=== PATIENT | male | born 1955 | race Caucasian/White ===

== ENCOUNTER → 2019-04-21 | Outpatient (CLI) | payer OTHER, SELFPAY ==
--- NOTE | 2019-04-21 09:43 | RAD_ITS ---
STUDY: X-RAY CHEST REASON FOR EXAM: Male, 64 years old. Persistent cough TECHNIQUE: PA and lateral COMPARISON: June 14, 2015 FINDINGS: Mild nonspecific interstitial thickening most pronounced in the lower lobes.. There is no demonstrated pleural abnormality. Normal size heart. Normal mediastinum and gabe. Normal visualized pulmonary arteries. Mildly calcified aortic arch and descending thoracic aorta. Dorsal spine demonstrates spondylosis. Normal visualized ribs, clavicles, and shoulders. There is no demonstrated abnormality of the visualized soft tissue structures of the upper abdomen. No significant change since prior study RAD/Chest PA and Lateral IMPRESSION: Chronic interstitial changes. No acute disease. Electronically Signed: Steven Faulkner MD at 22:05 EDT , Service support ,
--- NOTE | 2019-04-21 09:54 | ECHOCS_ITS ---
Reason For Study: DILATED AO ROOT Procedure This was a 2D Doppler, Color Flow transthoracic echocardiogram. The study was technically difficult. Contrast injection was performed. Exam performed in department. Left Ventricle Normal LV size. Left ventricular systolic function is normal. The estimated ejection fraction is 60 %. Diastolic function is indeterminate. No regional wall motion abnormalities noted. Right Ventricle Normal RV size. Normal systolic function. Atria Borderline left atrial enlargement. Normal right atrium. No doppler evidence for ASD. Mitral Valve There is no mitral annular calcification. Normal mitral valve. Trivial mitral valve insufficiency. Tricuspid Valve Normal tricuspid valve. Trivial tricuspid valve insufficiency. Right ventricular systolic pressure estimated to be 28 mmHg. Aortic Valve Trisinus/trileaflet aortic valve. Normal aortic valve. Trivial aortic valve insufficiency. Pulmonic Valve Normal pulmonic valve. Trivial pulmonic valve insufficiency. Great Vessels Mild to moderately dilated aortic root. Pericardium/Pleural No pericardial effusion. Medication 22 gauge I.V. with prn adaptor inserted into right arm. Diluted definity 3.5ml given slow IV push to enhance endocardial definition. MMode/2D Measurements & Calculations LVIDd: 5.3 cm IVSd: 0.70 cm Ao root diam: 4.4 cm LVIDs: 3.7 cm LVPWd: 1.0 cm RVDd: 3.6 cm FS: 29.8 % LAV(MOD-bp): 76.1 ml LVAd ap4: 42.5 cm2 SV(MOD-sp4): 87.1 ml LAV(MOD-bp) Indexed: 30.5 ml/m2 EDV(MOD-sp4): 153.2 ml LAV(MOD-sp2): 82.2 ml EDV(sp4-el): 162.1 ml LAV(MOD-sp4): 72.5 ml LVAs ap4: 25.2 cm2 ESV(MOD-sp4): 66.0 ml ESV(sp4-el): 69.9 ml EF(MOD-sp4): 56.9 % EF(sp4-el): 56.9 % SV(sp4-el): 92.2 ml LA A4 area: 22.7 cm2 LA dimension(2D): 4.0 cm RA A4 area: 17.0 cm2 Time Measurements MV dec time: 0.22 sec Doppler Measurements & Calculations MV E max dylan: 74.8 cm/sec Lat Peak E' Dylan: 16.6 cm/sec Med Peak E' Dylan: 5.2 cm/sec MV A max dylan: 40.5 cm/sec E/E' lat: 4.5 E/E' med: 14.3 MV E/A: 1.8 Ao V2 max: 123.9 cm/sec LV V1 max: 101.0 cm/sec PA V2 max: 71.5 cm/sec Ao max P.1 mmHg LV V1 max P.1 mmHg PI end-d dylan: 122.2 cm/sec TR max dylan: 250.0 cm/sec TR max P.1 mmHg Interpretation Summary The study was technically difficult. Contrast injection was performed. Left ventricular systolic function is normal. The estimated ejection fraction is 60 %. Borderline left atrial enlargement. Trivial mitral valve insufficiency. Trivial tricuspid valve insufficiency. Trivial aortic valve insufficiency. Trivial pulmonic valve insufficiency. Mild to moderately dilated aortic root. Right ventricular systolic pressure estimated to be 28 mmHg. Diastolic function is indeterminate. Ordering Physician: Remedios Grimes Referring Physician: Remedios Grimes Performed By: Ariadne Atkinson, YAZMIN, RVT
== END | disposition home or self-care (01) ==
PROVIDERS: Family Provider Internal Medicine; PCP Internal Medicine; Referring Provider Internal Medicine; Visit Provider Internal Medicine
DX: R05 Cough (principal); I77.810 Thoracic aortic ectasia
CPT/HCPCS: 71046; 93306; Q9957; A4216; C8929

== ENCOUNTER → 2020-03-11 | Outpatient (CLI) | payer OTHER, SELFPAY | END | disposition home or self-care (01) | LOC: LABSPEC 12:14 | PROVIDERS: PCP Internal Medicine; Visit Provider Obstetrics & Gynecology | DX: Z11.59 Encounter for screening for other viral diseases (principal) | CPT/HCPCS: 87635; G2023; U0003 ==

== ENCOUNTER → 2020-11-07 10:40 | Outpatient (CLI) | payer OTHER, SELFPAY ==
--- NOTE | 2020-11-07 10:50 | RAD_ITS ---
STUDY: X-RAY CHEST REASON FOR EXAM: Male, 65 years old. HX. HYPERTENSION TECHNIQUE: PA and lateral views of the chest. COMPARISON: 04/21/2019 FINDINGS: The lungs are clear and expanded. There is no demonstrated pleural abnormality. There is borderline cardiomegaly. Normal mediastinum and gabe. Normal visualized pulmonary arteries. Normal visualized aortic arch and descending thoracic aorta. Normal visualized thoracic spine. Normal visualized ribs, clavicles, and shoulders. There is no demonstrated abnormality of the visualized soft tissue structures of the upper abdomen. RAD/Chest PA and Lateral IMPRESSION: Normal x-ray examination of the chest. Electronically Signed: Dixon Quinteros DO at 22:20 EST Tel , Service support ,
== END ==
LOC: RAD.FUTURE 10:43 → RAD 10:44
PROVIDERS: PCP Internal Medicine; Referring Provider Internal Medicine; Visit Provider Internal Medicine
DX: R05 Cough (principal)
CPT/HCPCS: 71046

== ENCOUNTER → 2021-07-21 10:28 | Outpatient (CLI) | payer MEDICARE, OTHER, SELFPAY ==
[2021-07-30 11:09] LABS: Cortisol, Urinary Free 27 ug/L (Undefined)
== END ==
PROVIDERS: PCP Internal Medicine; Visit Provider Internal Medicine
DX: E27.8 Other specified disorders of adrenal gland (principal); R74.8 Abnormal levels of other serum enzymes; E34.9 Endocrine disorder, unspecified; E78.5 Hyperlipidemia, unspecified; E55.9 Vitamin D deficiency, unspecified
CPT/HCPCS: 36415; 82530; 82627; 82626

== ENCOUNTER 2021-12-19 06:41 | Outpatient (CLI) | payer MEDICARE, OTHER, SELFPAY ==
--- NOTE | 2021-12-19 06:50 | CT_ITS ---
STUDY: CTA CHEST REASON FOR EXAM: Male, 66 years old. ASCENDING AORTIC ANEURYSM RADIATION DOSAGE (If Supplied By Facility): CTDIvol = ( 26.69 ) mGy, DLP = ( 2763.29 ) mGycm TECHNIQUE: The examination was performed with the intravenous administration of IV 100mL Isovue-300. Post-processing of the angiographic images was performed, with multiplanar reformation and 3D reconstruction. Individualized dose optimization techniques were used for this CT. COMPARISON: Comparison is made with prior examination dated 06/14/2015. FINDINGS: Normal enhancement of the main pulmonary artery and right and left pulmonary arteries. Normal enhancement of the bilateral peripheral pulmonary arteries. There is no demonstrated pulmonary embolism. There is aneurysmal dilatation of the ascending aorta. The transverse diameter of the ascending aorta measures 41.2 mm''s. On prior examination, it measured 40 mm. There is no demonstrated aortic dissection. There are calcifications of the coronary arteries. Normal mediastinum. Calcified right hilar lymph node. Normal visualized trachea and bronchi. The lungs are well expanded. Stable 5 mm calcified granuloma in the posterior medial segment of the right lower lobe. Stable minimal increased markings at the lung bases suggestive of a scarring. Normal pleura. Normal chest wall structures. There are degenerative changes of thoracic spine. Normal visualized upper abdomen. CT/CTA Chest W/WO Contrast IMPRESSION: Essentially stable examination. The root of the ascending thoracic aorta measures 41.2 mm. Electronically Signed: Jairo Mccarty MD at 8:56 EDT ,
--- NOTE | 2021-12-19 06:50 | CT_ITS ---
STUDY: CTA ABDOMEN AND PELVIS WITH CONTRAST REASON FOR EXAM: Male, 66 years old. ADRENAL MASS RADIATION DOSAGE (If Supplied By Facility): CTDIvol = ( 26.69 ) mGy, DLP = ( 2763.29 ) mGycm TECHNIQUE: Transaxial images were obtained from the dome of the diaphragm to the symphysis pubis without oral contrast. IV 100mL Isovue-300 was administered. Sagittal and coronal images were reconstructed. Individualized dose optimization techniques were used for this CT. COMPARISON: Comparison is made with prior study to 06/14/2015. FINDINGS: Stable mild increased markings at the lung bases suggestive of scarring. Coronary artery calcification. Normal liver. Normal gallbladder and extrahepatic biliary system. Normal spleen. Normal pancreas. There is a small, circumscribed, smooth, low attenuation right adrenal mass, consistent with an adrenal adenoma. This measures 1.3 cm. Normal left adrenal gland. Normal right kidney. Punctate calculus in the midpole calyx of the left kidney. Normal visualized stomach. Normal small intestine. Normal colon. The appendix is visualized and appears normal. There is scattered atherosclerotic calcification of the abdominal aorta, without a demonstrated aneurysm. Normal inferior vena cava. Normal retroperitoneum. Normal urinary bladder. There is a small umbilical hernia containing fat. Normal osseous structures. CT/CTA Abdomen W/WO Contrast IMPRESSION: Findings suggestive of a 1.3 cm right adrenal adenoma. Punctate calculus in the midpole calyx of the left kidney. Electronically Signed: Jairo Mccarty MD at 9:01 EDT ,
[2021-12-19 07:06] LABS: CREATININE FINGERSTICK 1.3 mg/dL (0.70-1.30)
== END 2021-12-19 23:59 | disposition home or self-care (01) ==
PROVIDERS: PCP Internal Medicine; Referring Provider Internal Medicine; Visit Provider Internal Medicine
DX: I77.810 Thoracic aortic ectasia (principal); E27.8 Other specified disorders of adrenal gland
CPT/HCPCS: 71275; 74175; Q9967

== ENCOUNTER 2022-05-30 12:05 | Inpatient (IN) | payer MEDICARE, OTHER, SELFPAY ==
[2022-05-30 12:07] VITALS: BP 140/92; PULSE 95; RESP 16; TEMP 36.4; O2SAT 99; BMI 34.7
--- NOTE | 2022-05-30 12:20 | VDLE_ITS ---
Reason For Study: Swelling RIGHT GSV is normal. CFV is compressible, spontaneous, phasic, competent and demonstrates normal augmentation. FV is compressible, spontaneous, phasic, competent and demonstrates normal augmentation. POP V is compressible, spontaneous, phasic, competent and demonstrates normal augmentation. T/P Trunk is compressible. PTV is compressible. RT PerV is compressible. Heterogenous, non vascular structure noted Rt Groin consistent with enlarged lymph node. Procedure This is a venous duplex using B-mode, color flow and spectral Doppler. The exam was abbreviated due to the COVID 19 protocol. Exam performed portable in ED. The study was technically difficult. Technically difficult due to swelling. A preliminary report was called and/or faxed to Dr. Silva. VL/Venous Duplex US, Unilateral Interpretation Summary Deep veins of the right lower extremity are patent and compressible segmentally . There is no evidence of right lower extremity deep vein thrombosis. Valvular competence adina ears intact within the proximal deep venous system on the right . The right great saphenous vein a ppears patent and compressible segmentally. A non-vascular, heterogeneous structure is noted in t he right groin, measuring 5.48 cm x 1.75 cm. This may represent lymphadenopathy. Clinical corre lation is advised. Ordering Physician: Rajeev Silva Referring Physician: Remedios Grimes Performed By: Karen Gannon, RDCS, RVT
--- NOTE | 2022-05-30 12:42 | EDS_ITS ---
HPI History of Present Illness Chief Complaint: Lower Extremity Injury Detail of Chief Complaint: Right leg redness and swelling Informant: patient Narrative Narrative: Patient presents the emergency department complaint of redness and swelling to his right leg that he has noticed over the last 4 days. Patient was on a cruise in [place] and had been doing some walking. 4 days ago he came down with fever and chills and the next morning he tested positive for COVID. Patient subsequently developed pain and swelling in his right leg and was seen by the physician on board the ship and was started on Lovenox as well as Rocephin IV. Patient also started on Keflex p.o. Patient continues to complain of swelling and redness to the right leg that has not improved and is worried about a DVT. Patient tells me that he had a negative D-dimer on board the ship. Patient denies chest pain or shortness of breath. Prior similar symptoms: No [facility] Medical History (Updated 05/30/22 @ 13:[address] Rajeev Silva, ) Gout HTN (hypertension) Home Medications amlodipine 5 mg tablet 5 mg PO DAILY ##30 06/14/15 [Rx Last Taken 01/14/17 05:30] metoprolol succinate 50 mg tablet,extended release 24 hr 100 mg PO DAILY 06/14/15 [History Last Taken 01/14/17 05:30] aspirin 325 mg tablet,delayed release 325 mg PO DAILY@0800 01/07/17 [History Last Taken Unknown] cholecalciferol (vitamin D3) 50 mcg (2,000 unit) capsule (Vitamin D3) 2,000 unit PO DAILY 01/07/17 [History Last Taken Unknown] metformin 500 mg tablet,extended release 24 hr 750 mg PO BID 01/07/17 [History Last Taken Unknown] naltrexone 8 mg-bupropion 90 mg tablet,extended release (Contrave) 2 ea PO DAILY 01/07/17 [History Last Taken Unknown] Allergy/AdvReac Type Severity Reaction Status Date / Time allopurinol Allergy Rash Verified 05/30/22 12:06 Penicillins Allergy Hives Verified 05/30/22 12:05 Sulfa (Sulfonamide Allergy Hives Verified 05/30/22 12:05 Antibiotics) Surgical History (Updated 05/30/22 @ 13:08 by Carmella Rebolledo) H/O cardiac radiofrequency ablation Social History Smoking Status: Never smoker ROS ROS ED Review of Systems ROS Unobtainable: other Constitutional Constitutional ED: Reports lethargy; Denies chills, fever(s), sweats or weight loss Eyes Eyes: Denies blurry vision, change in vision or diplopia ENT ENT ED: Denies rhinorrhea or sore throat Cardiovascular Cardiovascular: Reports chest pain and racing heartbeat; Denies orthopnea Respiratory/Chest Respiratory/Chest: Reports dyspnea and dyspnea on exertion; Denies cough, orthopnea or sputum Gastrointestinal Gastrointestinal: Denies abdominal pain, diarrhea, nausea or vomiting Genitourinary Genitourinary ED: Denies dysuria, hematuria or urinary frequency Musculoskeletal Musculoskeletal: Reports other Details: Right leg redness and swelling ; Denies arthralgias, back pain, myalgias or neck pain Integumentary Denies abscess, Abrasions or rash Neurologic Neurologic: Denies headache(s) or weakness Psychiatric Psychiatric: Denies anxiety, depression or suicidal thoughts Endocrine Endocrinology: Denies polydipsia, polyphagia or polyuria Hematologic/Lymphatic Hematologic/Lymphatic: Denies easy bleeding, easy bruising or lymphadenopathy Allergic/Immunologic Allergic/Immunologic ED: Denies mouth swelling, tongue swelling or urticaria EXAM Physical Exam Const Vital Signs: 05/30/22 12:07 Temperature 97.6 F L Temperature Source Temporal Pulse Rate 95 Respiratory Rate 16 Blood Pressure 140/92 H Blood Pressure Mean 108 Pulse Ox 99 Oxygen Delivery Method Room Air Positive well nourished and well developed General Appearance ED: well developed and NAD HEENT Reports TM's clear and moist mucous membranes normocephalic and atraumatic; Negative for trauma or tenderness Tympanic Membrane ED: Yes TM's clear Eyes PERRL and EOMs intact bilaterally General Eye ED: Negative for pale conjunctiva or scleral icterus Neck no lymphadenopathy, supple and no JVD General: Negative for tenderness Chest Wall inspection of chest normal and palpation of chest normal Chest: Negative for tenderness Resp normal respiratory effort and clear to auscultation bilaterally Effort and Inspection: Negative for respiratory distress or pain with movement Auscultation: Negative for rhonchi, wheezes or diminished lung sounds Cardio regular rate, regular rhythm, S1 normal heart sound, S2 normal heart sound and no murmurs Peripheral Pulses: pulses 2+ throughout GI normal to inspection, nondistended, normoactive bowel sounds, soft to palpation, non-tender, non-distended and no masses Back/Spine no CVA tenderness and no thoracic nor lumbar tenderness Extremity normal to inspection General Extremety ED: Negative for edema General Extremity: Negative for edema Neuro oriented x3, CN's II-XII intact bilaterally, no sensory deficits noted and gait normal Sensorium / Orientation: awake, alert, oriented to person, oriented to place and oriented to time Motor Exam: strength 5/5 throughout and strength abnormal Psych mental status grossly normal Skin no rashes or lesions noted and no wounds Skin Narrative: Right lower extremity-patient has diffuse erythema and edema of the right lower extremity consistent with cellulitis. MDM MDM MDM Narrative Medical decision making narrative: IV line established on arrival. Patient was given Rocephin and vancomycin IV. Lab work-up showed an elevated white count of 15.4. Chemistries unremarkable. Lactate was normal. Venous Doppler was negative for DVT of the right leg. Case will be discussed with hospitalist evaluate patient for admission for cellulitis of the right leg with failed outpatient therapy. Lab Data Attestation: I reviewed the patient's lab results. Labs: Laboratory Results - last 24 hr 05/30/22 05/30/22 05/30/22 12:45 12:45 12:45 WBC 15.4 H RBC 5.20 Hgb 15.7 Hct 46.4 MCV 89.2 MCH 30.2 MCHC 33.8 RDW Std Deviation 41.4 RDW Coeff of Wild 12.7 Plt Count 260 MPV 9.6 Immature Gran % (Auto) 0.700 Neut % (Auto) 84.5 H Lymph % (Auto) 6.5 L [place] % (Auto) 7.5 Eos % (Auto) 0.5 Baso % (Auto) 0.3 Absolute Neuts (auto) 13.1 H Absolute Lymphs (auto) 1.00 Nucleated RBC % 0 Sodium 137 Potassium 3.4 L Chloride 102 Carbon Dioxide 26.0 Anion Gap 9 BUN 15 Creatinine 1.14 Estim Creat Clear Calc 74.11 Est GFR (MDRD) Af Amer 83 Est GFR (MDRD) Non-Af 68 BUN/Creatinine Ratio 13.2 Glucose 154 H Lactic Acid 1.2 Calcium 8.7 Discharge Plan Triage Chief Complaint: Lower Extremity Injury ED Provider: Rajeev Silva Dx/Rx/DC Orders Clinical Impression: Cellulitis of leg, right, Leukocytosis, COVID-19 Prescriptions: No Action metoprolol succinate 50 MG tablet 100 mg PO DAILY amlodipine 5 MG tablet 5 mg PO DAILY Qty: 30 0RF aspirin 325 MG tablet 325 mg PO DAILY@0800 metformin 500 MG tablet 750 mg PO BID cholecalciferol (vitamin D3) [Vitamin D3] 2,000 UNIT capsule 2,000 unit PO DAILY naltrexone-bupropion [Contrave] 1 EACH Tablet.Er 2 ea PO DAILY Primary Care Provider: Remedios Grimes Referrals: Remedios Grimes MD [Primary Care Provider] - Disposition Disposition: Acute Care Hospital [facility]
[2022-05-30] MEDS: Ceftriaxone 1 GM/50 ML BAG IV (13:05)
[2022-05-30 13:11] LABS: Absolute Neutrophil Count 13.1 X10^3/uL (2.0-7.7); Basophil# 0.04 X10^3/uL; Basophil% 0.3 % (0-1); Eosinophil# 0.07 X10^3/uL; Eosinophils% 0.5 % (0-5); Hematocrit 46.4 % (40-54); Hemoglobin 15.7 g/dL (13.0-16.5); Lymphocyte % 6.5 % (19-41); Mean Corp Hgb Conc 33.8 g/dL (32-36); Mean Corpuscular Hgb 30.2 pg (27.0-32.0); Mean Corpuscular Volume 89.2 fL (80-94); Mean Platelet Vol. 9.6 fl (6.2-12.0); Monocyte# 1.16 X10^3/uL; Monocyte% 7.5 % (0-10); NRBC Flagged by Analyzer 0 % (0-5); Neutrophil # 13.06 X10^3/uL (2.7-7.7); Neutrophil % 84.5 % (47-70); Platelet Count 260 K/mm3 (150-450); RBC Distribution Width CV 12.7 % (11.6-14.6); RBC Distribution Width SD 41.4 fl (35.1-43.9); White Blood Count 15.4 K/mm3 (4.4-11.0)
[2022-05-30 13:22] LABS: Anion Gap 9 (5-15); BUN 15 mg/dL (7-18); BUN/Creat Ratio 13.2 RATIO (10-20); Calcium,Total 8.7 mg/dL (8.5-10.1); Chloride 102 mmol/L (98-107); Creatinine, Serum 1.14 mg/dL (0.70-1.30); EST Glomerular Filtration Rate 68 mL/min (>60); Est Glom Filt Rate - Afr Amer 83 mL/min (>60); Estimated Creatinine Clearance 74.11 ml/min; Glucose 154 mg/dL (74-106); Potassium 3.4 mmol/L (3.5-5.1); Sodium Level 137 mmol/L (136-145)
[2022-05-30 13:27] LABS: Lactic Acid 1.2 mmol/L (0.4-1.9)
--- NOTE | 2022-05-30 13:40 | HP.PCM.HOS_ITS ---
HPI - General General Date of Admission: 05/30/22 Date of Service: 05/30/22 Chief Complaint: Right lower extremity swelling HPI Narrative AME BETANCOURT, is a 67 M who presents presents with right lower extremity swelling. Patient symptoms started 5 days prior to his admission while was on a cruise. He developed fever and chills and some shortness of breath. Tested himself for COVID came back positive started himself on Paxlovid. He later experienced significant swelling involving the right lower extremity. He also did experience significant warmth and erythema involving the entire distal right lower extremity. D-dimer obtained on the street came back negative. Patient was treated with Rocephin switched to Keflex. Patient symptoms however did not improve hence the decision to present to the emergency department. In the ED v enous duplex involving the right lower extremity came back negative for DVT. An assessment of cellulitis made. Admitted to regular nursing floor for further management [facility] Medical History Gout HTN (hypertension) Home Medications amlodipine 5 mg tablet 5 mg PO DAILY ##30 06/14/15 [Rx Last Taken 01/14/17 05:30] metoprolol succinate 50 mg tablet,extended release 24 hr 100 mg PO DAILY 06/14/15 [History Last Taken 01/14/17 05:30] aspirin 81 mg tablet,delayed release 81 mg PO DAILY 05/30/22 [History Last Taken Unknown] cholecalciferol (vitamin D3) 125 mcg (5,000 unit) tablet (Vitamin D3) 125 mcg PO DAILY 05/30/22 [History Last Taken Unknown] esomeprazole magnesium 20 mg capsule,delayed release (Nexium) 20 mg PO DAILY 05/30/22 [History Last Taken Unknown] Allergy/AdvReac Type Severity Reaction Status Date / Time allopurinol Allergy Rash Verified 05/30/22 12:06 Penicillins Allergy Hives Verified 05/30/22 12:05 Sulfa (Sulfonamide Allergy Hives Verified 05/30/22 12:05 Antibiotics) Family History (Updated 05/30/22 @ 14:[address] Andres Roberts MD) Mother Diabetes Surgical History (Updated 05/30/22 @ 13:08 by Carmella Rebolledo) H/O cardiac radiofrequency ablation Social History Smoking Status: Never smoker ROS ROS Narrative GENERAL: fever, chills, HEENT: denies headache, sinus congestion, RESPIRATORY: denies cough, CARDIAC: denies chest pain, palpitations, orthopnea, PND GASTROINTESTINAL: denies abdominal pain, nausea, vomiting, melena, GENITOURINARY: denies dysuria, urgency, frequency, heamaturia EXTREMITY: denies swelling MUSCULOSKELETAL: Swelling and erythema involving the right lower extremity NEUROLOGIC: denies focal numbness, weakness, tingling HEMATOLOGIC: denies easy bruising and/or hemorrhage INTEGUMENT: denies rashes PSYCHIATRIC: denies suicidal or homicidal ideation Vital Signs Vital Signs Vital Signs: 05/30/22 12:07 Temperature 97.6 F L Temperature Source Temporal Pulse Rate 95 Respiratory Rate 16 Blood Pressure 140/92 H Blood Pressure Mean 108 Pulse Ox 99 Oxygen Delivery Method Room Air Weight Weight: 122.47 kg Body Mass Index (BMI) 34.7 Physical Exam Narrative GENERAL: cooperative HEENT: Atraumatic; EYES; Anicteric, Normal Conjunctiva NECK; supple, normal thyroid, RESPIRATORY: Diminished to auscultation CARDIOVASCULAR: Regular S1 S2, GI: soft, normoactive bowel sounds, : No Renal angle tenderness; EXTREMITIES: Significant swelling and erythema with seeping involving the right lower extremity from the knee to the ankle MUSCULOSKELETAL: no muscle wasting NEURO: Awake; no lateralizing signs. SKIN: As described above PSYCH; Flat affect Results Lab / Micro Data Result Diagrams: 05/30/22 12:45 05/30/22 12:45 Labs: Laboratory Results - last 24 hr 05/30/22 12:45: WBC 15.4 H, RBC 5.20, Hgb 15.7, Hct 46.4, MCV 89.2, MCH 30.2, MCHC 33.8, RDW Std Deviation 41.4, RDW Coeff of Wild 12.7, Plt Count 260, MPV 9.6, Immature Gran % (Auto) 0.700, Neut % (Auto) 84.5 H, Lymph % (Auto) 6.5 L, [place] % (Auto) 7.5, Eos % (Auto) 0.5, Baso % (Auto) 0.3, Absolute Neuts (auto) 13.1 H, Absolute Lymphs (auto) 1.00, Nucleated RBC % 0 05/30/22 12:45: Sodium 137, Potassium 3.4 L, Chloride 102, Carbon Dioxide 26.0, Anion Gap 9, BUN 15, Creatinine 1.14, Estim Creat Clear Calc 74.11, Est GFR (MDRD) Af Amer 83, Est GFR (MDRD) Non-Af 68, BUN/Creatinine Ratio 13.2, Glucose 154 H, Calcium 8.7 05/30/22 12:45: Lactic Acid 1.2 Assessment & Plan Assessment/Plan (1) Cellulitis of leg, right: (2) COVID-19: PLAN: Plan Patient is a 67-year-old gentleman presented with significant swelling involving the right lower extremity with erythema and warmth 1. Cellulitis involving right lower extremity ?Patient is failed outpatient treatment with Keflex admitted to regular nursing floor started on Rocephin and vancomycin. Cultures sent from the ED. Patient also underwent venous duplex of the right lower extremity in the ED which was negative for DVT 2. COVID-19 infection ? Patient did self treat with Paxlovid. Currently remains asymptomatic 3. Hypertension - Blood pressure controlled, home medications continued with dose adjustment as needed 4. Gout ? Currently asymptomatic 5. GERD ? On PPI 6. Obstructive sleep apnea ? Patient is on CPAP at night 7. BMI of 34.7 ? Weight loss advised 8. DVT prophylaxis ? [facility] Charges/Coding Visit Charges Inpatient E&M: 67248 Init Hosp L3
--- NOTE | 2022-05-30 13:47 | NURSING ---
MED SURG KITTOE CELLULITIS RT LEG WITH FAILED OUTPATIENT THERAPY, COVID 19, LEUKOCYTOSIS
[2022-05-30 14:06] VITALS: BP 137/74; PULSE 83; RESP 18; TEMP 37.6; O2SAT 94
[2022-05-30 14:35] LABS: M R Staph aureus DNA By PCR Negative (Negative); Probe Check PASS; Specimen Processing Control PASS
--- NOTE | 2022-05-30 15:11 | PCM.RX.CS ---
Consult Pharmacy has been consulted to manage selected antiobiotic: Vancomycin Type of Consult: New start Suspected Infection: Skin/Soft tissue Labs: Sodium 137 mmol/L (136-145) 05/30/22 12:45 Potassium 3.4 mmol/L (3.5-5.1) L 05/30/22 12:45 Chloride 102 mmol/L (98-107) 05/30/22 12:45 Carbon Dioxide 26.0 mmol/L (21.0-32.0) 05/30/22 12:45 Anion Gap 9 (5-15) 05/30/22 12:45 BUN 15 mg/dL (7-18) 05/30/22 12:45 Creatinine 1.14 mg/dL (0.70-1.30) 05/30/22 12:45 Est GFR (MDRD) Af Amer 83 mL/min (>60) 05/30/22 12:45 Est GFR (MDRD) Non-Af 68 mL/min (>60) 05/30/22 12:45 BUN/Creatinine Ratio 13.2 RATIO (10-20) 05/30/22 12:45 Glucose 154 mg/dL (74-106) H 05/30/22 12:45 Goal Trough: 10-15 mcg/mL Pharmacy Plan for Drug Dosing: NEW START IV VANCOMYCIN Consulting Physician: Dr. Roberts Indication: Cellulitis Goal Trough: 10-15 SrCr: 1.14 CrCl: 88.64 mls/min (based off of an adjusted body weight of 98kg) Comments: pt received a 1750mg dose in the ER on 05/30/22 at 1404 Vancomcyin Dose: based on pts weight and renal function, recommend an initial dose of 1250mg q12h starting 05/31/22 at 0200. trough before the 4th total dose Pending Level: 06/01/22 at 0130 Pharmacy Service will continue to monitor and adjust dosing as required. Follow-Up Labs: Trough Vancomycin - 06/01/22 at 0130
[2022-05-30 15:19] VITALS: BMI 35.3
[2022-05-30 15:27] VITALS: BP 119/76; PULSE 88; RESP 18; TEMP 36.9; O2SAT 94
[2022-05-30] MEDS: 0.9% Normal Saline 1,000 ML 150 ML IV ×2 (15:52→22:27)
[2022-05-30] MEDS: Acetaminophen 325 MG Tablet 650 MG PO (16:05)
[2022-05-30 21:03] VITALS: BP 128/77; PULSE 79; RESP 18; TEMP 37.2; O2SAT 97
[2022-05-30] MEDS: Enoxaparin 40 MG/0.4 ML Syringe SC (21:08)
[2022-05-31 03:30] VITALS: BP 121/80; PULSE 81; RESP 18; TEMP 36.8; O2SAT 94
[2022-05-31] MEDS: 0.9% Normal Saline 1,000 ML 150 ML IV ×3 (06:58→20:12)
[2022-05-31 07:00] LABS: Anion Gap 9 (5-15); BUN 11 mg/dL (7-18); BUN/Creat Ratio 10.5 RATIO (10-20); Calcium,Total 8.4 mg/dL (8.5-10.1); Chloride 107 mmol/L (98-107); Creatinine, Serum 1.05 mg/dL (0.70-1.30); EST Glomerular Filtration Rate 75 mL/min (>60); Est Glom Filt Rate - Afr Amer 91 mL/min (>60); Estimated Creatinine Clearance 80.46 ml/min; Glucose 102 mg/dL (74-106); Magnesium 2.3 mg/dL (1.6-2.6); Phosphorus 2.9 mg/dL (2.5-4.9); Potassium 3.5 mmol/L (3.5-5.1); Sodium Level 140 mmol/L (136-145)
[2022-05-31 07:04] LABS: Absolute Lymphocyte Count 1.22 X10^3/uL (0.83-4.51); Absolute Neutrophil Count 9.3 X10^3/uL (2.0-7.7); Basophil# 0.04 X10^3/uL; Basophil% 0.3 % (0-1); Eosinophil# 0.18 X10^3/uL; Eosinophils% 1.5 % (0-5); Hematocrit 42.9 % (40-54); Hemoglobin 14.7 g/dL (13.0-16.5); Lymphocyte # 1.22 X10^3/ul (0.83-4.51); Lymphocyte % 10.2 % (19-41); Mean Corp Hgb Conc 34.3 g/dL (32-36); Mean Corpuscular Hgb 30.9 pg (27.0-32.0); Mean Corpuscular Volume 90.3 fL (80-94); Mean Platelet Vol. 9.6 fl (6.2-12.0); Monocyte# 1.15 X10^3/uL; Monocyte% 9.6 % (0-10); NRBC Flagged by Analyzer 0 % (0-5); Neutrophil # 9.29 X10^3/uL (2.7-7.7); Neutrophil % 77.6 % (47-70); Platelet Count 229 K/mm3 (150-450); RBC Distribution Width CV 12.7 % (11.6-14.6); RBC Distribution Width SD 42.2 fl (35.1-43.9); Red Blood Count 4.75 M/mm3 (4.6-6.2)
--- NOTE | 2022-05-31 07:52 | PN.HOSP_ITS ---
Subjective Subjective Patient is a 67-year-old gentleman presented with significant swelling involving the right lower extremity with erythema. An assessment of right lower extremity cellulitis made admitted to regular nursing floor of further management. Patient had also tested positive for COVID on a recent cruise to [place] Objective Data Objective Data Vital Signs: Vital Signs Temp Pulse Resp BP Pulse Ox O2 Del Method 98.3 F 81 18 121/80 H 94 Room Air 05/31/22 03:30 05/31/22 03:30 05/31/22 03:30 05/31/22 03:30 05/31/22 03:30 05/31/22 03:30 Oxygen Delivery Method Room Air Weight: 124.738 kg Body Mass Index (BMI) 35.3 Intake & Output: Intake and Output for Last 24 Hours 05/29/22 05/30/22 05/31/22 23:59 23:59 23:59 Intake Total 2072.5 / 2712.5 2155 / 2155 Output Total 1850 / 1850 Balance 2072.5 / 1912.5 305 / 305 Lab / Micro Data Result Diagrams: 05/31/22 05:49 05/31/22 05:49 Labs: Laboratory Results - last 24 hr 05/30/22 12:45: WBC 15.4 H, RBC 5.20, Hgb 15.7, Hct 46.4, MCV 89.2, MCH 30.2, MC HC 33.8, RDW Std Deviation 41.4, RDW Coeff of Wild 12.7, Plt Count 260, MPV 9.6, Immature Gran % (Auto) 0.700, Neut % (Auto) 84.5 H, Lymph % (Auto) 6.5 L, [place] % (Auto) 7.5, Eos % (Auto) 0.5, Baso % (Auto) 0.3, Absolute Neuts (auto) 13.1 H, Absolute Lymphs (auto) 1.00, Nucleated RBC % 0 05/30/22 12:45: Sodium 137, Potassium 3.4 L, Chloride 102, Carbon Dioxide 26.0, Anion Gap 9, BUN 15, Creatinine 1.14, Estim Creat Clear Calc 74.11, Est GFR (MDRD) Af Amer 83, Est GFR (MDRD) Non-Af 68, BUN/Creatinine Ratio 13.2, Glucose 154 H, Calcium 8.7 05/30/22 12:45: Lactic Acid 1.2 05/30/22 12:55: MRSA (PCR) Negative 05/31/22 05:49: WBC 12.0 H, RBC 4.75, Hgb 14.7, Hct 42.9, MCV 90.3, MCH 30.9, MCHC 34.3, RDW Std Deviation 42.2, RDW Coeff of Wild 12.7, Plt Count 229, MPV 9.6, Immature Gran % (Auto) 0.800, Neut % (Auto) 77.6 H, Lymph % (Auto) 10.2 L, [place] % (Auto) 9.6, Eos % (Auto) 1.5, Baso % (Auto) 0.3, Absolute Neuts (auto) 9.3 H, Absolute Lymphs (auto) 1.22, Nucleated RBC % 0 05/31/22 05:49: Sodium 140, Potassium 3.5, Chloride 107, Carbon Dioxide 24.0, Anion Gap 9, BUN 11, Creatinine 1.05, Estim Creat Clear Calc 80.46, Est GFR (MDRD) Af Amer 91, Est GFR (MDRD) Non-Af 75, BUN/Creatinine Ratio 10.5, Glucose 102, Calcium 8.4 L, Phosphorus 2.9, Magnesium 2.3 Radiography Diagnostic Testing: Radiology Impression Venous Doppler Study 05/30/22 12:20 Interpretation Summary Deep veins of the right lower extremity are patent and compressible segmentally. There is no evidence of right lower extremity deep vein thrombosis. Valvular competence appears intact within the proximal deep venous system on the right . The right great saphenous vein appears patent and compressible segmentally. A non-vascular, heterogeneous structure is noted in the right groin, measuring 5.48 cm x 1.75 cm. This may represent lymphadenopathy. Clinical correlation is advised. Ordering Physician: Rajeev Silva Referring Physician: Remedios Grimes Performed By: Karen Gannon, RDCS, RVT Physical Exam Narrative GENERAL: cooperative HEENT: Atraumatic; EYES; Anicteric, Normal Conjunctiva NECK; supple, normal thyroid, RESPIRATORY: Diminished to auscultation CARDIOVASCULAR: Regular S1 S2, GI: soft, normoactive bowel sounds, : No Renal angle tenderness; EXTREMITIES: Significant swelling and erythema with seeping involving the right lower extremity from the knee to the ankle MUSCULOSKELETAL: no muscle wasting NEURO: Awake; no lateralizing signs. SKIN: As described above PSYCH; Flat affect Assessment & Plan Assessment/Plan (1) Cellulitis of leg, right: (2) COVID-19: PLAN: Plan Patient is a 67-year-old gentleman presented with significant swelling involving the right lower extremity with erythema and warmth 1. Cellulitis involving right lower extremity ?Patient is failed outpatient treatment with Keflex admitted to regular nursing floor started on Rocephin and vancomycin. Cultures sent from the ED. Patient also underwent venous duplex of the right lower extremity in the ED which was negative for DVT ? 05/31/2022 there appears to be a decrease in the swelling involving the right lower extremity and less erythematous compared to the day prior WBC count also trending down. 2. COVID-19 infection ? Patient did self treat with Paxlovid. Currently remains asymptomatic 3. Hypertension - Blood pressure controlled, home medications continued with dose adjustment as needed 4. Gout ? Currently asymptomatic 5. GERD ? On PPI 6. Obstructive sleep apnea ? Patient is on CPAP at night 7. BMI of 34.7 ? Weight loss advised 8. DVT prophylaxis ? SC Lovenox Charges/Coding Visit Charges Inpatient E&M: 71061 Subs Hosp L2
[2022-05-31 08:59] VITALS: O2SAT 94
[2022-05-31] MEDS: Aspirin E.C. 81 MG Tablet PO (09:02)
[2022-05-31 09:05] VITALS: BP 130/79; PULSE 89; RESP 18; TEMP 37.2; O2SAT 94
[2022-05-31 09:08] VITALS: BP 130/79; PULSE 89
[2022-05-31] MEDS: Enoxaparin 40 MG/0.4 ML Syringe SC ×2 (09:08→20:11)
[2022-05-31] MEDS: Cholecalciferol (Vit D3) 125 MCG CAPSULE (5,000 UNITS) PO (09:08)
[2022-05-31] MEDS: amLODIPine 5 MG Tablet PO (09:08)
[2022-05-31] MEDS: Metoprolol(XL)Succ 100 MG Tablet PO (09:08)
[2022-05-31] MEDS: Pantoprazole Sodium 20 MG Tablet PO (09:09)
[2022-05-31] MEDS: Acetaminophen 325 MG Tablet 650 MG PO ×2 (10:46→20:11)
[2022-05-31 14:05] VITALS: BP 123/68; PULSE 81; RESP 18; TEMP 36.6; O2SAT 95
[2022-05-31 20:16] VITALS: BP 135/79; PULSE 87; RESP 16; TEMP 37.2; O2SAT 95
[2022-06-01 02:10] LABS: Absolute Lymphocyte Count 1.44 X10^3/uL (0.83-4.51); Absolute Neutrophil Count 8.1 X10^3/uL (2.0-7.7); Basophil# 0.04 X10^3/uL; Basophil% 0.4 % (0-1); Eosinophils% 2.7 % (0-5); Hematocrit 40.8 % (40-54); Hemoglobin 13.9 g/dL (13.0-16.5); Lymphocyte # 1.44 X10^3/ul (0.83-4.51); Lymphocyte % 13.1 % (19-41); Mean Corp Hgb Conc 34.1 g/dL (32-36); Mean Corpuscular Hgb 30.8 pg (27.0-32.0); Mean Corpuscular Volume 90.5 fL (80-94); Mean Platelet Vol. 9.3 fl (6.2-12.0); Monocyte# 0.97 X10^3/uL; Monocyte% 8.8 % (0-10); NRBC Flagged by Analyzer 0 % (0-5); Neutrophil % 73.5 % (47-70); Platelet Count 242 K/mm3 (150-450); RBC Distribution Width CV 12.8 % (11.6-14.6); RBC Distribution Width SD 42.1 fl (35.1-43.9); Red Blood Count 4.51 M/mm3 (4.6-6.2)
[2022-06-01] MEDS: 0.9% Normal Saline 1,000 ML 150 ML IV ×2 (02:11→11:00)
[2022-06-01 02:13] VITALS: BP 132/77; PULSE 68; RESP 16; TEMP 36.9; O2SAT 97
[2022-06-01 02:41] LABS: Anion Gap 5 (5-15); BUN 12 mg/dL (7-18); BUN/Creat Ratio 12.3 RATIO (10-20); Calcium,Total 8.3 mg/dL (8.5-10.1); Chloride 111 mmol/L (98-107); Creatinine, Serum 0.97 mg/dL (0.70-1.30); EST Glomerular Filtration Rate 82 mL/min (>60); Est Glom Filt Rate - Afr Amer 99 mL/min (>60); Glucose 105 mg/dL (74-106); Potassium 3.8 mmol/L (3.5-5.1); Sodium Level 141 mmol/L (136-145)
[2022-06-01 02:44] LABS: Vancomycin, Trough Level 8.2 ug/mL (5.0-15.0)
--- NOTE | 2022-06-01 04:03 | PCM.RX.CS ---
Consult Pharmacy has been consulted to manage selected antiobiotic: Vancomycin Type of Consult: Follow-up Labs: Sodium 141 mmol/L (136-145) 06/01/22 01:45 Potassium 3.8 mmol/L (3.5-5.1) 06/01/22 01:45 Chloride 111 mmol/L (98-107) H 06/01/22 01:45 Carbon Dioxide 25.0 mmol/L (21.0-32.0) 06/01/22 01:45 Anion Gap 5 (5-15) 06/01/22 01:45 BUN 12 mg/dL (7-18) 06/01/22 01:45 Creatinine 0.97 mg/dL (0.70-1.30) 06/01/22 01:45 Est GFR (MDRD) Af Amer 99 mL/min (>60) 06/01/22 01:45 Est GFR (MDRD) Non-Af 82 mL/min (>60) 06/01/22 01:45 BUN/Creatinine Ratio 12.3 RATIO (10-20) 06/01/22 01:45 Glucose 105 mg/dL (74-106) 06/01/22 01:45 Vancomycin Trough 8.2 ug/mL (5.0-15.0) 06/01/22 01:45 Goal Trough: 10-15 mcg/mL Pharmacy Plan for Drug Dosing: Pharmacy Service will continue to monitor and adjust dosing as required. TROUGH 8.2 AT 11.5 HRS. (GOAL 10-15) INCREASE TO 1500 Q12H AND FOLLOW UP TROUGH PRIOR TO 4TH DOSE Follow-Up Labs: Trough Vancomycin Labs to be done on [date and time ordered]: 06/03 @ 0136
[2022-06-01] MEDS: Acetaminophen 325 MG Tablet 650 MG PO (08:11)
[2022-06-01 08:15] VITALS: BP 133/74; PULSE 86; RESP 18; TEMP 36.6; O2SAT 98
--- NOTE | 2022-06-01 09:53 | DCINST_ITS ---
Discharge Instructions Diet Discharge Diet: Low fat / Low cholesterol Activity Discharge Activity: Return to Normal Activity Dressing / Incision Call your doctor if you observe: Fever of 101 or Higher, Shortness of breath, Dizziness, Fainting spells, Swelling in the ankles, Chest pain and Increased palpitations (irregular heartbeat) Follow Up Care Test Results: Test results from this visit will be discussed in further detail at your follow- up appointment, if applicable. Discharge Plan Admission Admit Date/Time: 05/30/22 14:03 Attending Provider: Theodore Appiah Primary Care Provider: Remedios Grimes Consulting Providers: Andres Roberts ; Mark Lauren Instructions Additional Instructions / Restrictions: Can Tommie wrap affected extremity to assist with edema Discharge Orders/Prescriptions Prescriptions: New doxycycline hyclate 100 mg capsule 100 mg PO BID Qty: 14 0RF Continued metoprolol succinate 50 MG tablet 100 mg PO DAILY amlodipine 5 MG tablet 5 mg PO DAILY Qty: 30 0RF aspirin 81 mg Tablet,Delayed Release (Dr/Ec) 81 mg PO DAILY esomeprazole magnesium [Nexium] 20 mg Capsule,Delayed Release(Dr/Ec) 20 mg PO DAILY cholecalciferol (vitamin D3) [Vitamin D3] 125 mcg (5,000 unit) Tablet 125 mcg PO DAILY Referrals / Follow Up: Remedios Grimes MD [Primary Care Provider] - Within 1 Week Disposition Disposition (needs filled in before D/C Order can be placed): Home, Self Care
--- NOTE | 2022-06-01 10:21 | PCM.DC.SUM ---
Providers Date of Admission: 05/30/22 Primary Care Physician: Dr. Remedios Grimes MD Consultations 05/31/22 10:04 Consult: Infectious Disease Routine Consulting Provider: Mark Lauren Reason for Consult: Right lower extremity cellulitis EMERGENT Consult: No MD Notified: Yes Date Notified: 06/01/22 Time Notified: 08:55 Method of Notification: Answering Service Reason For Visit: RIGHT LOWER EXTREMITY Diagnosis Discharge Diagnosis (1) Cellulitis of leg, right: Status: Acute Code(s): L03.115 - Cellulitis of right lower limb (2) COVID-19: Status: Acute Code(s): U07.1 - COVID-19 Medications at Discharge Home Medications amlodipine 5 mg tablet 5 mg PO DAILY ##30 06/14/15 metoprolol succinate 50 mg tablet,extended release 24 hr 100 mg PO DAILY 06/14/15 aspirin 81 mg tablet,delayed release 81 mg PO DAILY 05/30/22 cholecalciferol (vitamin D3) 125 mcg (5,000 unit) tablet (Vitamin D3) 125 mcg PO DAILY 05/30/22 esomeprazole magnesium 20 mg capsule,delayed release (Nexium) 20 mg PO DAILY 05/30/22 doxycycline hyclate 100 mg capsule 100 mg PO BID #14 caps 06/01/22 Hospital Course Operations None Procedures None Summary of Care Provided Minutes Spent on Discharge: 38 Hospital Course: Per HPI: AME BETANCOURT, is a 67 M who presents presents with right lower extremity swelling.? Patient symptoms started 5 days prior to his admission while was on a cruise.? He developed fever and chills and some shortness of breath.? Tested himself for COVID came back positive started himself on Paxlovid.? He later experienced significant swelling involving the right lower extremity.? He also did experience significant warmth and erythema involving the entire distal right lower extremity.? D-dimer obtained on the street came back negative.? Patient was treated with Rocephin switched to Keflex.? Patient symptoms however did not improve hence the decision to present to the emergency department.? In the ED venous duplex involving the right lower extremity came back negative for DVT.? An assessment of cellulitis made.? Admitted to regular nursing floor for further management Hospital Course: 1. Right lower extremity cellulitis?67-year-old male recently came back from an [facility] cruise with right lower extremity cellulitis. He states that he was given 2 g of Rocephin on the crew ship and then was given for Keflex pills prior to heading home. On arrival back to [place], he came straight to the ER. Doppler was negative for blood clot. He was started on Vanco and Rocephin with improvement in his redness. He states today that his redness is improved and that he has improvement in his pain as well. His white count has resolved and he is afebrile. He would like to go home today, I discussed with him the risks and benefits and he expressed understanding. We will plan for discharge today on twice daily doxycycline for 7 more days to complete his antibiotic course. Blood cultures are also negative and no sign of fluctuance so unlikely to be MRSA. 2. Recent COVID-19 infection?he is asymptomatic but did have a fever on 05/25/2022. He has been vaccinated x4 and he did take Paxlovid. Remains asymptomatic. 3. Hypertension, gout, GERD, struct of sleep apnea are all chronic medical conditions which complicate his care. His home medications were continued where appropriate Physical Exam Narrative General: Alert, Oriented x3, Cooperative, No apparent distress HEENT: Atraumatic, PERRLA, EOMI, Normocephalic Oral: Moist Mucosa Neck: Supple, No JVD Lungs: Clear to auscultation, Normal air movement, No rhonchi, No wheeze, No rales Cardiovascular: Regular rate, Regular Rhythm, Normal S1, Normal S2, No murmurs Abdomen: Soft, Non Tender, Non-Distended, No Hepato-splenomegaly Extremities: RLE edema, Capillary Refill Less than 3 Seconds Skin: Right lower extremity is red and swollen and warm. States it is improved Neurological: Cranial nerves II-XII grossly intact, Motor Exam 5/5 strength throughout, Sensory exam intact to light touch and pain Psych/Mental Status: Normal Affect, Appropriate Weight / BMI Weight Weight: 275 lb 0.005 oz Body Mass Index (BMI) 35.3 ABG / Lab / Microbiology Data Result Diagrams: 06/01/22 01:45 06/01/22 01:45 Laboratory: Laboratory Results - last 24 hr 06/01/22 01:45: WBC 11.0, RBC 4.51 L, Hgb 13.9, Hct 40.8, MCV 90.5, MCH 30.8, MCHC 34.1, RDW Std Deviation 42.1, RDW Coeff of Wild 12.8, Plt Count 242, MPV 9.3, Immature Gran % (Auto) 1.500 H, Neut % (Auto) 73.5 H, Lymph % (Auto) 13.1 L, [place] % (Auto) 8.8, Eos % (Auto) 2.7, Baso % (Auto) 0.4, Absolute Neuts (auto) 8.1 H, Absolute Lymphs (auto) 1.44, Nucleated RBC % 0 06/01/22 01:45: Sodium 141, Potassium 3.8, Chloride 111 H, Carbon Dioxide 25.0, Anion Gap 5, BUN 12, Creatinine 0.97, Estim Creat Clear Calc 87.10, Est GFR (MDRD) Af Amer 99, Est GFR (MDRD) Non-Af 82, BUN/Creatinine Ratio 12.3, Glucose 105, Calcium 8.3 L 06/01/22 01:45: Vancomycin Trough 8.2 Microbiology: Microbiology 05/30/22 12:45 Blood Culture (Wb) - Left Hand Blood Culture - Preliminary No growth in 48 hours. 05/30/22 12:45 Blood Culture (Wb) - Anticubital Right Blood Culture - Preliminary No growth in 48 hours. D/C Instructions Discharge Diet: Low fat / Low cholesterol Call your doctor if you observe: Fever of 101 or Higher, Shortness of breath, Dizziness, Fainting spells, Swelling in the ankles, Chest pain and Increased palpitations (irregular heartbeat) Meaningful Use Info Meaningful Use Diagnoses (Choose all that apply): None applicable Discharge Plan Admission Admit Date/Time: 05/30/22 14:03 Attending Provider: Theodore Appiah Primary Care Provider: Remedios Grimes Consulting Providers: Andres Roberts ; Mark Lauren Instructions Additional Instructions / Restrictions: Can Tommie wrap affected extremity to assist with edema Discharge Orders/Prescriptions Prescriptions: New doxycycline hyclate 100 mg capsule 100 mg PO BID Qty: 14 0RF Continued metoprolol succinate 50 MG tablet 100 mg PO DAILY amlodipine 5 MG tablet 5 mg PO DAILY Qty: 30 0RF aspirin 81 mg Tablet,Delayed Release (Dr/Ec) 81 mg PO DAILY esomeprazole magnesium [Nexium] 20 mg Capsule,Delayed Release(Dr/Ec) 20 mg PO DAILY cholecalciferol (vitamin D3) [Vitamin D3] 125 mcg (5,000 unit) Tablet 125 mcg PO DAILY Referrals / Follow Up: Remedios Grimes MD [Primary Care Provider] - Within 1 Week Disposition Disposition (needs filled in before D/C Order can be placed): Home, Self Care Charges/Coding Visit Charges Inpatient E&M: 14313 Disch Hosp
--- NOTE | 2022-06-01 11:05 | CASEMGMT ---
RN CM called patient in room for initial transition planning/care coordination assessment. RN CM introduced self and role at [facility]. Patient lying in bed, alert and oriented. Patient willing to participate in assessment and is able to answer all questions appropriately. Care providers, pharmacy, and demographics verified. Patient wishes to discharge home, denies need for home health at this time. Patient states he has no further needs or concerns at this time. CM to follow for discharge planning needs that may arise. PCP: [place] Specialists: Tito, pulmonology Preferred [facility]: [facility] [employer] [facility] Prescription Benefit: yes Living Will/HPOA: yes, Izabel Iraheta LNOK: Living Arrangements: Patient lives with in a 2 story home. Patient is independent and able to ambulate stairs. Transportation: self, DME/HHC: Patient states he has raised toilet, cane, crutches, walker, and cpap at home. No previous HHC or SNF. Disposition Plan: Patient to discharge home with family support and follow-up plans in place. Evelyne KELLER, RN, CM
[2022-06-01] MEDS: 0.9% Saline Lock 10 ML Syringe IV ×2 (11:09→17:17)
[2022-06-01] MEDS: Cholecalciferol (Vit D3) 125 MCG CAPSULE (5,000 UNITS) PO (11:21)
[2022-06-01] MEDS: Aspirin E.C. 81 MG Tablet PO (11:21)
[2022-06-01] MEDS: Enoxaparin 40 MG/0.4 ML Syringe SC (11:21)
[2022-06-01] MEDS: Pantoprazole Sodium 20 MG Tablet PO (11:21)
[2022-06-01 11:22] VITALS: BP 133/74; PULSE 86
[2022-06-01] MEDS: Metoprolol(XL)Succ 100 MG Tablet PO (11:22)
[2022-06-01] MEDS: amLODIPine 5 MG Tablet PO (11:23)
[2022-06-01 14:00] VITALS: BP 145/66; PULSE 85; RESP 18; TEMP 36.9; O2SAT 92
[2022-06-01 17:14] VITALS: BP 150/62; PULSE 86; RESP 18; TEMP 37.1; O2SAT 92
== END 2022-06-01 17:30 | disposition home or self-care (01) | DRG 602 ==
LOC: ED 13:44 → MS3 14:20
PROVIDERS: Admitting Provider Internal Medicine; Emergency Provider Emergency Medicine; PCP Internal Medicine; Visit Provider Family Medicine
DX: L03.115 Cellulitis of right lower limb (principal); U07.1 COVID-19; K21.9 Gastro-esophageal reflux disease without esophagitis; G47.33 Obstructive sleep apnea (adult) (pediatric); I10 Essential (primary) hypertension; M10.9 Gout, unspecified; Z79.82 Long term (current) use of aspirin; Z79.899 Other long term (current) drug therapy; E66.9 Obesity, unspecified; Z68.34 Body mass index [BMI] 34.0-34.9, adult
CPT/HCPCS: 36415; 80048; 80202; 83605; 83735; 84100; 85025; 87040; 87641; 93971; 99284; J7030; J7040; J7050; A4216; J0696

== ENCOUNTER → 2022-12-05 | Outpatient (CLI) | payer MEDICARE, OTHER, SELFPAY ==
[2022-12-05 08:50] LABS: Absolute Lymphocyte Count 1.44 X10^3/uL (0.83-4.51); Absolute Neutrophil Count 4.2 X10^3/uL (2.0-7.7); Basophil# 0.05 X10^3/uL; Basophil% 0.8 % (0-1); Eosinophil# 0.25 X10^3/uL; Eosinophils% 3.8 % (0-5); Hematocrit 51.7 % (40-54); Lymphocyte # 1.44 X10^3/ul (0.83-4.51); Lymphocyte % 22.1 % (19-41); Mean Corp Hgb Conc 32.9 g/dL (32-36); Mean Corpuscular Hgb 30.4 pg (27.0-32.0); Mean Corpuscular Volume 92.5 fL (80-94); Mean Platelet Vol. 9.3 fl (6.2-12.0); Monocyte# 0.57 X10^3/uL; Monocyte% 8.7 % (0-10); NRBC Flagged by Analyzer 0 % (0-5); Neutrophil % 64.3 % (47-70); Platelet Count 247 K/mm3 (150-450); RBC Distribution Width CV 12.8 % (11.6-14.6); RBC Distribution Width SD 43.7 fl (35.1-43.9); Red Blood Count 5.59 M/mm3 (4.6-6.2); White Blood Count 6.5 K/mm3 (4.4-11.0)
[2022-12-05 09:27] LABS: AST(SGOT) 13 U/L (15-37); Alanine Aminotransfer ALT/SGPT 27 U/L (16-61); Albumin, Serum 3.8 g/dL (3.2-5.0); Alkaline Phosphatase 99 U/L (45-117); Bilirubin, Direct 0.33 mg/dL (0.00-0.30); Cholesterol 151 mg/dL (200); Globulin 3.4 g/dL (2.2-4.2); High Density Lipoprotein 45 mg/dL; Protein, Total 7.2 g/dL (6.4-8.2); Triglycerides 117 mg/dL; Very Low Density Lipoprotein 23 mg/dL (5-40)
[2022-12-10 20:26] LABS: Rubeola IgG Ab > 300.0 AU/mL (Immune >16.4); V-Zoster IgG (Immunity) 2518 index (Immune >165)
== END | disposition home or self-care (01) ==
LOC: LAB 08:07 → LABSPEC 12-06 07:43 → LAB 12-06 07:43
PROVIDERS: PCP Internal Medicine; Visit Provider Internal Medicine
DX: D75.0 Familial erythrocytosis (principal); E78.5 Hyperlipidemia, unspecified; Z11.59 Encounter for screening for other viral diseases
CPT/HCPCS: 36415; 80061; 80076; 81270; 85025; 86735; 86765; 86787

== ENCOUNTER → 2023-09-30 | Outpatient (CLI) | payer MEDICARE, OTHER, SELFPAY ==
--- NOTE | 2023-09-30 13:07 | CT_ITS ---
STUDY: CT CHEST WITH CONTRAST REASON FOR EXAM: Male, 68 years old. DILATED AORTIC ROOT RADIATION DOSAGE (If Supplied By Facility): CTDIvol = ( 17.09 ) mGy, DLP = ( 863.54 ) mGycm TECHNIQUE: Transaxial imaging was performed following intravenous administration of IV 100mL Isovue-300. Multiplanar coronal and sagittal images were reformatted. Individualized dose optimization techniques were used for this CT. COMPARISON: Comparison is made with prior study dated December 19, 2021. FINDINGS: CHEST Stable calcified granuloma in the posterior segment of the right lower lobe. There is no demonstrated pleural abnormality. There are calcifications of the coronary arteries. Normal mediastinum. Normal hilar regions. Normal unenhanced pulmonary arteries. The transverse dimension of the root of the ascending thoracic aorta measures 40.2 mm. This is essentially unchanged as compared to prior study. Normal osseous structures. Stable 1.3 cm right adrenal adenoma. CT/Chest WITH Contrast IMPRESSION: Essentially stable examination. Electronically Signed: Jairo Mccarty MD at 13:55 EST ,
[2023-09-30 13:47] LABS: CREATININE FINGERSTICK < 1.0 mg/dL (0.70-1.30); EGFR FINGERSTICK > 60.0000 mL/min (>60)
== END | disposition home or self-care (01) ==
PROVIDERS: PCP Internal Medicine; Referring Provider Internal Medicine; Visit Provider Internal Medicine
DX: I77.810 Thoracic aortic ectasia (principal)
CPT/HCPCS: 71260; Q9967

== ENCOUNTER → 2024-06-02 | Outpatient (CLI) | payer MEDICARE, OTHER, SELFPAY ==
[2024-06-02 09:18] LABS: AST(SGOT) 14 U/L (15-37); Alanine Aminotransfer ALT/SGPT 25 U/L (16-61); Albumin, Serum 3.5 g/dL (3.2-5.0); Alkaline Phosphatase 90 U/L (45-117); Bilirubin, Direct 0.35 mg/dL (0.00-0.30); Cholesterol 124 mg/dL (200); Globulin 3.3 g/dL (2.2-4.2); High Density Lipoprotein 46 mg/dL; Protein, Total 6.8 g/dL (6.4-8.2); Triglycerides 123 mg/dL; Very Low Density Lipoprotein 25 mg/dL (5-40)
== END | disposition home or self-care (01) ==
PROVIDERS: PCP Internal Medicine; Referring Provider Internal Medicine; Visit Provider Internal Medicine
DX: E78.5 Hyperlipidemia, unspecified (principal)
CPT/HCPCS: 36415; 80061; 80076

== ENCOUNTER → 2025-07-24 | Outpatient (CLI) | payer MEDICARE, OTHER, SELFPAY ==
--- NOTE | 2025-07-24 11:00 | ECHOL_ITS ---
Reason For Study : THORACIC AORTIC ECTASIA Procedure This was a limited 2D transthoracic echocardiogram. Exam performed in department. Left Ventricle Normal size and thickness. The left ventricular ejection fraction is 65 %. Unable to assess diastolic function based on available data. Right Ventricle Normal right ventricle. Atria The left and right atria are normal. Mitral Valve Trivial mitral valve insufficiency. Tricuspid Valve Mild (1+) tricuspid valve insufficiency. Normal pulmonary artery pressure. Aortic Valve Trisinus/trileaflet aortic valve. Mild (1+) aortic valve insufficiency. Pulmonic Valve The pulmonic valve is not well visualized. Great Vessels Moderately dilated ascending aorta. Recommend CT scan for further evaluation. Pericardium/Pleural No pericardial effusion. MMode/2D Measurements & Calculations LVIDd: 5.0 cm IVSd: 0.88 cm Ao root diam: 4.3 cm LVIDs: 3.1 cm LVPWd: 0.92 cm FS: 36.8 % asc Aorta Diam: 4.6 cm LAV(MOD-bp): 84.0 ml LVAd ap4: 38.5 cm2 LAV(MOD-bp) Indexed: 34.0 ml/m2 LVLd ap4: 8.5 cm LAV(MOD-sp2): 71.2 ml EDV(MOD-sp4): 140.8 ml LAV(MOD-sp4): 86.0 ml EDV(sp4-el): 148.7 ml LVAs ap4: 21.9 cm2 LVLs ap4: 7.0 cm ESV(MOD-sp4): 58.2 ml ESV(sp4-el): 58.3 ml EF(MOD-sp4): 58.7 % EF(sp4-el): 60.8 % LVAd ap2: 32.0 cm2 SV(MOD-sp4): 82.7 ml SV(MOD-sp2): 67.0 ml LVLd ap2: 9.1 cm SI(MOD-sp4): 33.5 ml/m2 SI(MOD-sp2): 27.1 ml/m2 EDV(MOD-sp2): 97.7 ml EDV(sp2-el): 95.5 ml LVAs ap2: 15.8 cm2 LVLs ap2: 6.7 cm ESV(MOD-sp2): 30.7 ml ESV(sp2-el): 31.5 ml EF(MOD-sp2): 68.6 % SV(sp4-el): 90.4 ml LA dimension(2D): 3.7 cm LA A4 area: 27.4 cm2 RA A4 area: 24.9 cm2 Doppler Measurements & Calculations TR max julian: 238.3 cm/sec TR max P.7 mmHg ECHO/Echo, Limited Study Interpretation Summary The left ventricular ejection fraction is 65 %. Mild (1+) tricuspid valve insufficiency. Mild (1+) aortic valve insufficiency. Moderately dilated ascending aorta. Aortic root 4.3 cm. Previously measured at 4.3 cm from last study in 2019. Ascending aorta measured at this time at 4.6 cm. No previous measurement of the ascending aorta available. Recommend CT scan for further evaluation. Ordering Physician: Remedios Grimes Referring Physician: Remedios Grimes Performed By: Mirlande lOivera RDCS
== END | disposition home or self-care (01) ==
PROVIDERS: PCP Internal Medicine; Referring Provider Internal Medicine; Visit Provider Internal Medicine
DX: I77.810 Thoracic aortic ectasia (principal)
CPT/HCPCS: 93308